=== PATIENT | female | born 1985 | race Caucasian/White ===

== ENCOUNTER 2017-08-05 18:12 | Emergency (ER) | payer OTHER ==
[~2017-08-05] VITALS: Ht 160 cm; Wt 59.0 kg
[2017-08-05 18:24] VITALS: Ht 160 cm; Wt 59.0 kg
[2017-08-05 19:44] LABS: BASOPHIL % 0.6 % (0-2); PLATELET COUNT 215 x10^3mcL (130-400)
[2017-08-05 19:53] LABS: CALCIUM 8.4 mg/dL (8.5-10.1); CARBON DIOXIDE 28.8 mmol/L (21-32); CHLORIDE SERUM 104 mmol/L (98-107); CREATININE SERUM 0.9 mg/dL (0.6-1.0); GFR1 > 60 mL/min; GLUCOSE SERUM 96 mg/dL (74-106); POTASSIUM SERUM 3.6 mmol/L (3.5-5.1); SODIUM SERUM 141 mmol/L (136-145)
[2017-08-05 19:57] LABS: ALKALINE PHOSPHATASE 41 U/L (46-116); ALT/SGPT 20 U/L (14-59); AST/SGOT 19 U/L (15-37); BILIRUBIN TOTAL 0.2 mg/dL (0.20-1.00); LIPASE 254 IU/L (73-393); TOTAL PROTEIN, SERUM 7.2 g/dL (6.4-8.2)
[2017-08-05 20:20] VITALS: BP 124/98
== END 2017-08-05 20:20 | disposition home or self-care (01) ==
LOC: ED 18:12
PROVIDERS: Emergency Medicine
DX: R07.89 Other chest pain (principal); R10.9 Unspecified abdominal pain; R11.10 Vomiting, unspecified
CPT/HCPCS: 36415; J1885; Q0162

== ENCOUNTER 2017-09-18 16:13 | Emergency (ER) | payer OTHER ==
[~2017-09-18] VITALS: Ht 160 cm; Wt 59.4 kg
[2017-09-18 16:18] VITALS: Ht 160 cm; Wt 59.4 kg
[2017-09-18 17:46] VITALS: BP 126/82
== END 2017-09-18 17:46 | disposition home or self-care (01) ==
LOC: ED 16:13
DX: J02.9 Acute pharyngitis, unspecified (principal); M54.2 Cervicalgia

== ENCOUNTER 2017-10-11 14:39 | Emergency (ER) | payer OTHER ==
[~2017-10-11] VITALS: Ht 162.6 cm; Wt 56.7 kg
[2017-10-11 14:52] VITALS: Ht 162.6 cm; Wt 56.7 kg
[2017-10-11 18:42] VITALS: BP 130/69
== END 2017-10-11 18:42 | disposition home or self-care (01) ==
LOC: ED 14:39
DX: R51 Headache (principal); R11.2 Nausea with vomiting, unspecified
CPT/HCPCS: J0780; J1200; J7030

== ENCOUNTER 2018-08-28 09:04 | Emergency (ER) | payer OTHER ==
[~2018-08-28] VITALS: Ht 160 cm; Wt 58.3 kg
[2018-08-28 09:11] VITALS: BP 115/70; Ht 160 cm; Wt 58.3 kg
== END 2018-08-28 10:01 | disposition left against medical advice (07) ==
LOC: ED 09:04
DX: Z53.21 Procedure and treatment not carried out due to patient leaving prior to being seen by health care provider (principal)

== ENCOUNTER 2019-04-01 19:24 | Emergency (ER) | payer OTHER ==
[~2019-04-01] VITALS: Ht 160 cm; Wt 58.1 kg
[2019-04-01 19:49] VITALS: BP 124/61; Ht 160 cm; Wt 58.1 kg
== END 2019-04-01 23:01 | disposition left against medical advice (07) ==
LOC: ED 19:24
DX: Z53.21 Procedure and treatment not carried out due to patient leaving prior to being seen by health care provider (principal)